=== PATIENT | female | born 1930 | race Caucasian/White ===

== ENCOUNTER → 2017-04-24 | Outpatient (CLI) | payer OTHER, MEDICAID ==
[2016-08-09 11:36] VITALS: BP 147/66
--- NOTE | 2017-04-24 17:05 | RAD ---
HISTORY: Shortness of breath and cough Study: AP chest Comparison: August 07, 2016 Findings: The trachea is midline. The cardiac silhouette is unremarkable. There are intact pacemaker wire janie ds via the left subclavian vein and an unchanged Port-A-Cath via the right subclavian vein. There are chronic interstitial lung markings. There is mild vascular congestion. The costophrenic angles are i ndistinct.. The bony thorax is unremarkable. IMPRESSION: 1. Mild vascular congestion and tiny pleural effusions Reported By:
== END | disposition home or self-care (01) | DRG 204 ==
LOC: RAD 14:21
PROVIDERS: ATTEND Internal Medicine
DX: R06.02 Shortness of breath (principal); R05 Cough; R09.89 Other specified symptoms and signs involving the circulatory and respiratory systems
CPT/HCPCS: 71010